=== PATIENT | male | born 1965 | race Caucasian/White ===

== ENCOUNTER → 2017-01-10 | Outpatient (CLI) | payer BC ==
[~2017-01-10] MED LIST: AUGMENTIN PO; BACTRIM DS TABL1 TAB PO; GARLIC1 TAB PO; LEVAQUIN PO; LISINOPRIL PO; VICODIN 5/500 T1 TAB PO
--- NOTE | ~2017-01-10 | CT2 ---
[facility] A Service of [facility] & [facility] RADIOLOGY TEXT RESULTS PATIENT: NEELAM HEARD LOCATION: [facility]AT : 65 UNIT #: [id number] AGE: [address]: Lily Paige MD SEX: M ORDER DR: [id number] [facility] [address] [place], [place] [address] [id number] O MR#: [id number] Acc #: [id number] NAME: NEELAM HEARD : 1965 SEX: M STUDY DATE/TIME: 01/10/2017 13:27 UNIT: [facility]AT ROOM: STUDY DESCRIPTION: CT Abd and Pelv W Cont Attending Physician: Lily Paige M.D. Referring Physician: Lily Paige M.D. Ordering Physician: Lily Paige M.D. Primary Care Physician: Lily Paige M.D. MEDICAL IMAGING REPORT This report is preliminary unless electronic signature is present EXAM CT abdomen and pelvis with contrast 01/10/2017 1327 hours HISTORY A 51-year-old man with complaint of abdominal pain with nausea and vomiting and diarrhea for 6 days. History of ulcerative colitis and previous infection, obstruction. COMPARISON CT abdomen and pelvis 08/01/[address] images were obtained from the lung bases through the pubic symphysis. Sagittal and coronal reconstructions were performed. Oral and intravenous contrast were administered. Isovue-370 100 mL IV. Total exam DLP 977 mGy/cm. This CT exam was performed with one or more of the following radiation dose reduction techniques: automatic exposure control, adjustment of mA and/or kV according to patient size, and iterative reconstruction. FINDINGS Images through the lung bases demonstrate a small chronic left pleural effusion decreased from 08/01/2009. There is some linear scarring at the left lung base likely scar and chronic atelectasis. There is mild linear scarring at the right lung base also felt chronic. Images through the abdomen demonstrate mild low attenuation of the liver relative to the spleen which is unchanged and likely represents mild fatty change. There is no focal liver or splenic lesion. The pancreas and bile ducts are normal. The gallbladder is normal. There is no adrenal lesion. The kidneys enhance normally with no mass, stone or obstruction. There are no ureteral calculi. [facility] A Service of [facility] & [facility] RADIOLOGY TEXT RESULTS PATIENT: NE[facility]ARD [facility] UN[facility] #: [id number] AGE: [address]: Lily Paige MD SEX: M ORDER DR: The stomach is contracted and only partially opacified but does appear normal. The small bowel is mostly well opacified with contrast throughout. There is no distension or wall thickening. The terminal ileum and appendix are normal. The colon is opacified from the cecum to the proximal descending colon. There are a few scattered diverticula. There is a collapsed distal descending colon and sigmoid colon which appears to be diffusely contiguously thick-walled extending to the rectum which would be consistent with history of ulcerative colitis. It is very difficult to determine the full proximal extent of the findings, but the finding does extend at least to the mid descending colon. There is prominence of the adjacent vasa recta also suggesting inflammation. There is no significant adenopathy. There are a few minimally prominent lymph nodes in the central mesenteric fat. No hernias are seen. IMPRESSION 1. The colon is incompletely opacified with contrast. There appears to be contiguous wall thickening of the colon extending from the rectum contiguously at least to the mid descending colon with some prominence of the adjacent vasa recta suggesting acute inflammation. The distribution of the findings would be consistent with the history provided of ulcer colitis. There is no evidence of free fluid or abscess. There are a few reactive lymph nodes in the central mesentery increased from 08/01/2009. There is no small bowel abnormality. 2. Stable mild fatty change in the liver. 3. There is very small left pleural effusion with adjacent scarring. This is chronic and slightly improved from 08/01/2009. STAT * RESULT Dictated by... Sravani Suh M.D. THIS IS AN ELECTRONICALLY VERIFIED REPORT Sravani Suh M.D. at 01/13/2017 9:22 AM [employer] TD: 01/10/2017 14:19 JOB #: [id number] MEDICAL IMAGING REPORT Page 1 of 1 COPY
[2017-01-10 12:08] LABS: BASOPHIL% 0.5 % (0-2.5); EOSINOPHIL# 0.3 X10e3 (0-0.7); EOSINOPHIL% 3.7 % (0.0-7.0); HEMATOCRIT 44.6 % (38.0-50.0); HEMOGLOBIN 15.3 gm/dL (13.0-16.0); LYMPHOCYTE# 1.9 X10e3 (1.0-3.5); LYMPHOCYTE% 23.6 % (17.0-45.0); MEAN CELL VOLUME 91.9 FL (83-96); MEAN CORPUSCULAR HEMOGLOBIN 31.5 PG (28-34); MEAN CORPUSCULAR HGB CONC 34.3 g/dL (30-36); MEAN PLATELET VOLUME 6.2 FL (6.5-11.5); MONOCYTE# 0.7 X10e3 (0-1.0); MONOCYTE% 8.9 % (3.0-12.0); NEUTROPHIL# 5.2 X10e3 (1.5-7.1); NEUTROPHIL% 63.3 % (40-75); PLATELET COUNT 265 X10e3 (140-420); RED BLOOD COUNT 4.85 X10e (3.90-5.60); RED CELL DISTRIBUTION WIDTH 12.8 % (11.0-15.5); WHITE BLOOD COUNT 8.1 X10e3 (4.0-10.5)
[2017-01-10 12:09] LABS: DIFF IND NO
[2017-01-10 12:36] LABS: BUN/CREATININE RATIO 11.81; CALCIUM SERUM 8.9 mg/dL (8.4-10.2); CREATININE SERUM 1.1 mg/dL (0.6-1.4); GLOM FILT RATE Estimated 77.3 mL/min (>60); POTASSIUM 4.2 mmol/L (3.5-5.1); PROTEIN TOTAL SERUM 6.9 g/dL (6.0-8.3)
== END | disposition home or self-care (01) ==
LOC: CLAB 11:47 → CCAT 11:47
PROVIDERS: Internal Medicine
DX: R10.9 Unspecified abdominal pain (principal); K51.90 Ulcerative colitis, unspecified, without complications; J90 Pleural effusion, not elsewhere classified; J98.4 Other disorders of lung
CPT/HCPCS: 36415; 74177; 80053; 83690; 85025; Q9967